=== PATIENT | male | born 1955 | race Two or more races ===

== ENCOUNTER 2024-11-29 20:58 | Emergency (ER) | payer BC, MEDICAID ==
[~2024-11-29] VITALS: Ht 188 cm; Wt 79.3 kg
[~2024-11-29 20:58] MED LIST: CYCL-1 PO
[2024-11-29 21:06] VITALS: BP 119/91; PULSE 98; RESP 16; TEMP 98; O2SAT 98
[2024-11-29 22:40] LABS: BILIRUBIN,URINE NEGATIVE (Neg); CLARITY,URINE CLEAR (Clear); COLOR,URINE YELLOW (Yellow); GLUCOSE, URINE NEGATIVE (Neg); KETONES,URINE NEGATIVE (Neg); LEUKOCYTE ESTERASE ,URINE NEGATIVE (Neg); NITRITES, URINE NEGATIVE (Neg); OCCULT BLOOD,URINE NEGATIVE (Neg); PH,URINE 7.5 (4.8-8.0); PROTEIN,URINE NEGATIVE (Neg)
[2024-11-29 22:42] LABS: UA COLLECTION TYPE CLN CATCH MIDSTREAM
== END 2024-11-30 00:42 | disposition left against medical advice (07) ==
LOC: ER 20:59
DX: R10.84 Generalized abdominal pain (principal); R11.10 Vomiting, unspecified; Z53.21 Procedure and treatment not carried out due to patient leaving prior to being seen by health care provider
CPT/HCPCS: 81003